=== PATIENT | female | born 1985 | race Caucasian/White ===

== ENCOUNTER → 2020-05-06 08:30 | Outpatient (BNVA) | payer OTHER, SELFPAY | PROVIDERS: PCP Family Medicine; Referring Provider Family Medicine; Visit Provider Internal Medicine Endocrinology, Diabetes & Metabolism | DX: E06.3 Autoimmune thyroiditis (principal); E03.8 Other specified hypothyroidism; E55.9 Vitamin D deficiency, unspecified; R76.8 Other specified abnormal immunological findings in serum; E66.3 Overweight; Z68.27 Body mass index [BMI] 27.0-27.9, adult | CPT/HCPCS: 99214 ==

== ENCOUNTER 2020-05-06 09:08 | Outpatient (REF) | payer OTHER, SELFPAY ==
[2020-05-06 11:34] LABS: Free T4 (Free Thyroxine) 1.06 ng/dL (0.71-1.85); Vitamin D 25-OH Total 27.8 ng/mL (>30)
[2020-05-06 12:20] LABS: Vitamin B12 887 pg/mL (200-900)
[2020-05-07 20:22] LABS: Triiodothyronine T3 Total 92 ng/dL (76-181)
== END 2020-05-06 09:09 | disposition home or self-care (01) ==
LOC: HO.10HDL 09:08
PROVIDERS: PCP Internal Medicine; Visit Provider Internal Medicine Endocrinology, Diabetes & Metabolism
DX: E03.8 Other specified hypothyroidism (principal); R76.8 Other specified abnormal immunological findings in serum; E55.9 Vitamin D deficiency, unspecified; E06.3 Autoimmune thyroiditis
CPT/HCPCS: 82306; 82607; 84439; 84443; 84480

== ENCOUNTER → 2021-06-14 10:57 | Outpatient (BNVA) | payer OTHER, SELFPAY | PROVIDERS: PCP Internal Medicine; Visit Provider Nurse Practitioner Gerontology | DX: E03.8 Other specified hypothyroidism (principal); E06.3 Autoimmune thyroiditis; E55.9 Vitamin D deficiency, unspecified; E66.3 Overweight; Z68.27 Body mass index [BMI] 27.0-27.9, adult | CPT/HCPCS: 99212 ==

== ENCOUNTER 2021-06-14 12:27 | Outpatient (REF) | payer OTHER, SELFPAY ==
[2021-06-14 14:49] LABS: Thyroid Stimulating Hormone 0.24 uIU/mL (0.32-4.0); Vitamin D 25-OH Total 34.7 ng/mL (>30)
[2021-06-15 08:36] LABS: Triiodothyronine T3 Total 100 ng/dL (76-181)
== END 2021-06-14 12:28 | disposition home or self-care (01) ==
LOC: HO.10HDL 12:27
PROVIDERS: Visit Provider Nurse Practitioner Gerontology
DX: E03.8 Other specified hypothyroidism (principal); E06.3 Autoimmune thyroiditis; E55.9 Vitamin D deficiency, unspecified
CPT/HCPCS: 36415; 82306; 84439; 84443; 84480